=== PATIENT | female | born 1965 | race Caucasian/White ===

== ENCOUNTER → 2016-07-15 | Outpatient (CLI) | payer OTHER ==
--- NOTE | 2016-07-15 17:08 | XR ---
EXAMINATION TYPE: XR chest 2V DATE OF EXAM: 07/15/2016 3:10 PM COMPARISON: Prior chest x-ray 29 January 2016 HISTORY: COPD, irregular heartbeat TECHNIQUE: Frontal and lateral views of the chest are obtained. FINDINGS: There is no focal air space opacity, pleural effusion, or pneumothorax seen. The cardiac silhouette size is within normal limits. Patient is rotated. The osseous structures are intact. IMPRESSION: No acute cardiopulmonary process.
== END | disposition home or self-care (01) ==
LOC: RADXRMAIN 14:50
PROVIDERS: ATTEND Physician Assistant
DX: J44.9 Chronic obstructive pulmonary disease, unspecified (principal)
CPT/HCPCS: 71020

== ENCOUNTER → 2016-07-18 | Outpatient (CLI) | payer OTHER | END | disposition home or self-care (01) | LOC: RADECHMAIN 11:35 | PROVIDERS: ATTEND Family Medicine | DX: I49.1 Atrial premature depolarization (principal) | CPT/HCPCS: 93225; 93226 ==

== ENCOUNTER → 2016-09-05 | Outpatient (CLI) | payer OTHER ==
--- NOTE | 2016-09-05 14:06 | XR ---
EXAMINATION TYPE: XR tibia fibula RT DATE OF EXAM: 09/05/2016 1:58 PM COMPARISON: NONE HISTORY: Pain TECHNIQUE: Two views are submitted. FINDINGS: The osseous structures are intact. The joint spaces are preserved. Soft tissue calcifications are s een anteriorly. IMPRESSION: 1. No acute osseous abnormality.
== END | disposition home or self-care (01) ==
LOC: RADXRMAIN 13:42
PROVIDERS: ATTEND Physician Assistant
DX: M79.604 Pain in right leg (principal)

== ENCOUNTER → 2016-09-09 | Outpatient (CLI) | payer OTHER ==
--- NOTE | 2016-09-09 18:03 | CT ---
EXAMINATION TYPE: CT brain wo con DATE OF EXAM: 09/09/2016 5:50 PM COMPARISON: 11/21/2008 HISTORY: Patient complains of forgetfulness. CT DLP: 1097 mGycm Automated exposure control for dose reduction was used. FINDINGS: The ventricles have normal size. There is no mass effect nor midline shift. There is no sign of intra cranial hemorrhage. The calvarium is intact. IMPRESSION: Negative unenhanced head CT scan. No change.
== END ==
LOC: RADCTMAIN 17:30
PROVIDERS: ATTEND Family Medicine
DX: R41.3 Other amnesia (principal)
CPT/HCPCS: 70450

== ENCOUNTER → 2016-10-17 | Outpatient (CLI) | payer OTHER ==
--- NOTE | 2016-10-17 14:47 | CT ---
EXAMINATION TYPE: CT abdomen pelvis w con DATE OF EXAM: 10/17/2016 2:32 PM COMPARISON: 11/06/2014 HISTORY: 51-year-old female ventral hernia TECHNIQUE: Contiguous axial scanning of the abdomen and pelvis following administration of 100 ml Omn ipaque 300 IV contrast. Delayed images through the kidneys and coronal/sagittal reconstructions perf ormed. CT DLP: 3399.70 mGycm Automated exposure control for dose reduction was used. FINDINGS: The heart is normal size without pericardial effusion. Strandy areas of atelectasis at the lung bases without pleural effusion. Liver is mildly enlarged measuring 18.9 cm craniocaudal with diffuse diminished attenuation. Stable 2 .8 cm hypodense lesion segment 3 left liver lobe compatible with a cyst. Smaller subcentimeter hypode nsity centrally in the liver too small for accurate CT characterization but also likely a cyst. Portal venous system is patent. No biliary ductal dilatation. Gallbladder, adrenal glands, kidneys, spleen with inferior splenule, and pancreas appear within hubert l limits. No dilated small bowel, free fluid, or free air. Scattered nonenlarged mesenteric lymph nodes. Oral contrast has progressed to the distal transverse colon. No significant stool burden. There is sigmoid diverticulosis with wall thickening at the level of the mid to distal sigmoid but no pericolonic inflammatory change. There is some stretching and diastases of the rectus abdominis with focal protuberant bulging. There is widening of 8.1 cm and bulging on the sagittal view measuring up to 9.6 cm craniocaudal, refer to sagittal image 81 and axial image 55. No discrete hernia of the ventral abdominal wall. Bladder is nondistended but contains a small locule of intraluminal air, axial image 82. The uterus a nd left ovary are visualized. The right ovary may be small and is not well seen. No abnormal fluid co llection in the pelvis or pelvic lymphadenopathy. Bones: Mild degenerative changes at the hips. Moderate to severe disc/endplate degenerative change at L5-S1. Hypertrophic facet arthropathy L4-L5 with grade 1 anterolistheses at both L3-L4 and L4-L5. Miranda perior endplate Schmorl's node of L1. No osseous destructive process. IMPRESSION: 1. SIMILAR RECTUS DIASTASES WITH ANTERIOR BULGING OF THE INTERVENING FASCIA. THERE IS DIASTASES OF 8. 1 CM WIDE. NO DISCRETE HERNIA. 2. SIGMOID DIVERTICULOSIS. THERE IS MODERATE WALL THICKENING OF THE MID TO DISTAL SIGMOID THAT COULD REPRESENT CHRONIC DIVERTICULITIS. NO ACUTE INFLAMMATION. 3. CLINICAL CORRELATION RECOMMENDED FOR A SMALL LOCULE OF AIR WITHIN THE BLADDER LUMEN. THIS COULD RE FLECT RECENT INSTRUMENTATION OR INFECTION. 4. HEPATOMEGALY AND HEPATIC STEATOSIS. CORRELATE WITH LFT's, LIPID PROFILE, AND PATIENT RISK FACTORS.
== END | disposition home or self-care (01) ==
LOC: RADCTMAIN 11:45
PROVIDERS: ATTEND Surgery
DX: K57.30 Diverticulosis of large intestine without perforation or abscess without bleeding (principal); R16.0 Hepatomegaly, not elsewhere classified; K76.0 Fatty (change of) liver, not elsewhere classified; K62.89 Other specified diseases of anus and rectum; Q79.59 Other congenital malformations of abdominal wall
CPT/HCPCS: 74177; Q9967

== ENCOUNTER → 2016-12-19 | Outpatient (CLI) | payer OTHER ==
--- NOTE | 2016-12-24 08:51 | MM ---
Reason for exam: screening (asymptomatic). Last mammogram was performed 1 year and 2 months ago. Physical Findings: A clinical breast exam by your physician is recommended on an annual basis and results should be correlated with mammographic findings. MG Screening Mammo w CAD Bilateral CC, MLO, and XCCL view(s) were taken. CV view(s) were taken of the left breast. Prior study comparison: October 26, 2015, bilateral MG screening mammo w CAD. October 04, 2014, bilateral MG screening mammo w CAD. There are scattered fibroglandular densities. No significant changes when compared with prior studies. ASSESSMENT: Negative, BI-RAD 1 RECOMMENDATION: Routine screening mammogram of both breasts in 1 year.
== END | disposition home or self-care (01) ==
LOC: RADMAMWWP 13:46
PROVIDERS: ATTEND Family Medicine
DX: Z12.31 Encounter for screening mammogram for malignant neoplasm of breast (principal)

== ENCOUNTER 2017-03-10 16:36 | Emergency (ER) | payer OTHER ==
[2017-03-10 16:54] VITALS: RESP 18
[2017-03-10] MEDS ORDERED: SODIUM CHLORIDE 0.9% 1,000 ML IV STA (17:16)
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
[2017-03-10 17:41] LABS: Basophils % (A) 0 %; CH 29.9; CHCM 34.1; Eosinophils # (A) 0.2 k/uL (0-0.7); Eosinophils % (A) 2 %; HCT 40.9 % (34.0-46.0); HDW 2.74; HGB 13.8 gm/dL (11.4-16.0); Luc % (Auto) 1; Lymphocytes # (A) 1.6 k/uL (1.0-4.8); Lymphocytes % (A) 17 %; MCH 29.7 pg (25.0-35.0); MCHC 33.7 g/dL (31.0-37.0); MCV 88.1 fL (80.0-100.0); Mean Platelet Volume 7.9; Monocytes # (A) 0.6 k/uL (0-1.0); Monocytes % (A) 6 %; Neutrophils # (A) 7.1 k/uL (1.3-7.7); Neutrophils % (A) 74 %; RBC 4.65 m/uL (3.80-5.40); RDW 14.2 % (11.5-15.5); WBC 9.6 k/uL (3.8-10.6); WBC (Perox) 9.22
--- NOTE | 2017-03-10 17:46 | XR ---
EXAMINATION TYPE: XR KUB DATE OF EXAM: 03/10/2017 COMPARISON: NONE HISTORY: Pain TECHNIQUE: Single supine KUB image of the abdomen is obtained FINDINGS: Small bowel demonstrates no evidence for dilatation or air fluid levels. Gas and fecal material is seen in non-distended colon. No convincing evidence for pneumoperitoneum. No unusual calcifications. The lung bases are clear. The osseous structures are intact. IMPRESSION: 1. Overall nonobstructive bowel gas pattern.
[2017-03-10 17:48] LABS: Appearance,Urine Clear (Clear); Bilirubin,Urine Negative (Negative); Glucose,Urine (UA) Negative (Negative); Ketones,Urine Negative (Negative); Leukocyte Esterase,Urine Negative (Negative); Nitrite,Urine Negative (Negative); Protein,Urine Negative (Negative); Specific Gravity,Urine 1.019 (1.001-1.035); UA Billing (MACRO vs. MICRO) CHEM; Urobilinogen,Urine <2.0 mg/dL (<2.0)
[2017-03-10 17:49] LABS: ALT 43 U/L (9-52); AST 23 U/L (14-36); Alkaline Phosphatase 99 U/L (38-126); Anion Gap 11 mmol/L; Blood Urea Nitrogen 16 mg/dL (7-17); Calcium 9.3 mg/dL (8.4-10.2); Carbon Dioxide 26 mmol/L (22-30); Chloride 104 mmol/L (98-107); Glucose 78 mg/dL (74-99); Non-African American GFR(MDRD) >60 (>60 ml/min/1.73 sqM); Potassium 4.4 mmol/L (3.5-5.1); Sodium 141 mmol/L (137-145); Total Bilirubin 0.4 mg/dL (0.2-1.3); Total Protein 6.9 g/dL (6.3-8.2)
[2017-03-10 17:50] LABS: Amylase 36 U/L (30-110)
[2017-03-10 18:36] VITALS: BP 131/59; PULSE 67
[2017-03-10 18:50] VITALS: TEMP 97.1
== END 2017-03-10 18:50 | disposition home or self-care (01) ==
LOC: EC 16:36
DX: K59.00 Constipation, unspecified (principal); R10.30 Lower abdominal pain, unspecified; R11.2 Nausea with vomiting, unspecified; J45.909 Unspecified asthma, uncomplicated; I10 Essential (primary) hypertension; M19.90 Unspecified osteoarthritis, unspecified site; Z87.891 Personal history of nicotine dependence; Z79.51 Long term (current) use of inhaled steroids; Z79.899 Other long term (current) drug therapy
CPT/HCPCS: 36415; 74000; 80053; 81003; 82150; 83690; 85025; 96360; 99284

== ENCOUNTER → 2017-08-14 | Outpatient (CLI) | payer OTHER ==
--- NOTE | 2017-08-14 14:21 | US ---
EXAMINATION TYPE: US pelvic complete DATE OF EXAM: 08/14/2017 COMPARISON: CT 2017, US 2016 CLINICAL HISTORY: R10.9 abd pain. Abdomen pain and bloating x 4 days, 4, para 4, history of r ight oophorectomy TECHNIQUE: . Transabdominal sonographic images of the pelvis were acquired. Transvaginal sonographi c images were medically necessary to better assess the following anatomy: uterus and left ovary Date of LMP: 2 years ago EXAM MEASUREMENTS: Uterus: 7.7 x 4.0 x 4.5 cm Endometrial Stripe: 0.5 cm Right Ovary: surgically absent cm Left Ovary: not seen 1. Uterus: anteverted, heterogeneous with 1.5 x 1.4 x 1.6cm hypoechoic lesion posterior myometrium 2. Endometrium: visualized portion wnl 3. Right Ovary: surgically absent 4. Left Ovary: not seen due to overlying bowel 5. Bilateral Adnexa: wnl 6. Posterior cul-de-sac: wnl IMPRESSION: 1. Within the posterior mid myometrium there is a hypoechoic 1.6 cm probable leiomyoma. 2. Endometrial thickness is within normal limits. 3. Nonvisualization of the left ovary and surgical absence of the right ovary.
== END | disposition home or self-care (01) ==
LOC: RADUSWWP 13:41
PROVIDERS: ATTEND Family Medicine
DX: R93.8 Abnormal findings on diagnostic imaging of other specified body structures (principal); R10.9 Unspecified abdominal pain; Z90.721 Acquired absence of ovaries, unilateral
CPT/HCPCS: 76830; 76856

== ENCOUNTER 2018-01-19 15:23 | Emergency (ER) | payer MEDICARE, OTHER ==
[2018-01-19 15:41] VITALS: BP 140/87; PULSE 89; RESP 16; TEMP 98.4
[2018-01-19] MEDS ORDERED: PROPARACAINE 0.5% OPHTH DROPS 15 ML BTL RIGHT EYE STA (16:05)
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
== END 2018-01-19 16:44 | disposition home or self-care (01) ==
LOC: EC 15:23
DX: S05.01XA Injury of conjunctiva and corneal abrasion without foreign body, right eye, initial encounter (principal); J45.909 Unspecified asthma, uncomplicated; I10 Essential (primary) hypertension; M19.90 Unspecified osteoarthritis, unspecified site; G47.30 Sleep apnea, unspecified; Z99.89 Dependence on other enabling machines and devices; Z86.14 Personal history of Methicillin resistant Staphylococcus aureus infection; Z87.891 Personal history of nicotine dependence; Z79.51 Long term (current) use of inhaled steroids; Z79.899 Other long term (current) drug therapy; X58.XXXA Exposure to other specified factors, initial encounter; Y92.009 Unspecified place in unspecified non-institutional (private) residence as the place of occurrence of the external cause
CPT/HCPCS: 99283

== ENCOUNTER 2018-10-25 19:16 | Emergency (ER) | payer MEDICARE, OTHER ==
[2018-10-25 19:43] VITALS: BP 121/83; PULSE 80; RESP 18; TEMP 98.3
[2018-10-25 19:45] LABS: Glucose,Whole Blood 112 mg/dL (75-99)
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
== END 2018-10-25 21:31 | disposition home or self-care (01) ==
LOC: EC 19:16
DX: Z76.0 Encounter for issue of repeat prescription (principal); E11.9 Type 2 diabetes mellitus without complications; J44.9 Chronic obstructive pulmonary disease, unspecified; I10 Essential (primary) hypertension; G47.30 Sleep apnea, unspecified; Z99.89 Dependence on other enabling machines and devices; Z86.14 Personal history of Methicillin resistant Staphylococcus aureus infection; Z87.891 Personal history of nicotine dependence; Z79.51 Long term (current) use of inhaled steroids; Z79.899 Other long term (current) drug therapy
CPT/HCPCS: 36415; 99282

== ENCOUNTER 2018-11-13 17:18 | Emergency (ER) | payer MEDICARE, OTHER ==
[2018-11-13 17:24] VITALS: TEMP 98.6
[2018-11-13] MEDS ORDERED: SODIUM CHLORIDE 0.9% 1,000 ML IV STA (17:37)
[2018-11-13] MEDS ORDERED: cefTRIAXone 250 MG VIAL IM STA (17:38)
[2018-11-13] MEDS ORDERED: AZITHROMYCIN 500 MG TAB PO STA (17:38)
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
[2018-11-13] MEDS ORDERED: LIDOCAINE 1% INJ 10MG/ML (20 ML MDV) SQ STA (17:47)
[2018-11-13 18:14] LABS: Basophils % (A) 0 %; Eosinophils # (A) 0.1 k/uL (0-0.7); Eosinophils % (A) 2 %; HCT 38.8 % (34.0-46.0); HGB 12.8 gm/dL (11.4-16.0); Lymphocytes # (A) 1.4 k/uL (1.0-4.8); Lymphocytes % (A) 20 %; MCH 28.2 pg (25.0-35.0); MCHC 32.9 g/dL (31.0-37.0); MCV 85.6 fL (80.0-100.0); Mean Platelet Volume 7.2; Monocytes # (A) 0.4 k/uL (0-1.0); Monocytes % (A) 5 %; Neutrophils # (A) 5.1 k/uL (1.3-7.7); Neutrophils % (A) 71 %; Platelet Count 221 k/uL (150-450); RBC 4.53 m/uL (3.80-5.40); RDW 14.1 % (11.5-15.5); WBC 7.2 k/uL (3.8-10.6)
[2018-11-13 18:37] LABS: ALT 21 U/L (9-52); AST 20 U/L (14-36); Alkaline Phosphatase 98 U/L (38-126); Anion Gap 8 mmol/L; Blood Urea Nitrogen 19 mg/dL (7-17); Calcium 9.6 mg/dL (8.4-10.2); Carbon Dioxide 27 mmol/L (22-30); Chloride 105 mmol/L (98-107); Glucose 184 mg/dL (74-99); Lipase 51 U/L (23-300); Potassium 4.4 mmol/L (3.5-5.1); Sodium 140 mmol/L (137-145); Total Bilirubin 0.3 mg/dL (0.2-1.3); Total Protein 6.7 g/dL (6.3-8.2)
[2018-11-13 18:50] LABS: Appearance,Urine Clear (Clear); Bilirubin,Urine Negative (Negative); Blood,Urine Negative (Negative); Color,Urine Yellow; Glucose,Urine (UA) 3+ (Negative); Ketones,Urine Negative (Negative); Leukocyte Esterase,Urine Negative (Negative); Nitrite,Urine Negative (Negative); PH, Urine 5.5 (5.0-8.0); Protein,Urine Negative (Negative); Specific Gravity,Urine 1.029 (1.001-1.035); Urobilinogen,Urine <2.0 mg/dL (<2.0)
--- NOTE | 2018-11-13 19:41 | CT ---
EXAMINATION TYPE: CT abdomen pelvis w con DATE OF EXAM: 11/13/2018 COMPARISON: Prior CT abdomen pelvis 10/17/2016 HISTORY: Abdominal pain. Isovue 300/100 ml. Pt claustrophobic, unable to complete [address] DLP: 1454 mGycm Automated exposure control for dose reduction was used. TECHNIQUE: Helical acquisition of images from the lung bases through the pelvis have been completed. CONTRAST: Performed without Oral Contrast and with IV Contrast, patient injected with 100 mL of Isovue 300. FINDINGS: There is some motion on the exam. LUNG BASES: Minimal atelectatic changes are present. AORTA: No significant abnormality is appreciated. LIVER/GB: The liver is enlarged and shows low attenuation. Cystic focus within the left lobe is again seen. Gallbladder is contracted. PANCREAS: No significant abnormality is seen. SPLEEN: No significant abnormality is seen. ADRENALS: No significant abnormality is seen. KIDNEYS: No significant abnormality is seen. REPRODUCTIVE ORGANS: No significant abnormality is seen BOWEL: Diverticular changes associated with the sigmoid colon. No evident bowel obstruction. Colonic interposition anterior to the liver. The appendix is not seen. Small bowel loops show some wall thic kening and fluid-filled appearance. FREE AIR: No Free Air visible. ASCITES: None visible. PELVIC ADENOPATHY: None visualized. RETROPERITONEAL ADENOPATHY: No Retroperitoneal Adenopathy visible. URINARY BLADDER: No significant abnormality is seen. OSSEOUS STRUCTURES: Degenerative disc changes are present in the lower lumbar spine, there is associ ated facet arthropathy. IMPRESSION: PROBABLE HEPATIC STEATOSIS. DIVERTICULOSIS. CONSIDER ENTERITIS. EXAM SOMEWHAT LIMITED. ADDITIONAL FIN DINGS ABOVE.
[2018-11-13 20:24] VITALS: BP 145/89; PULSE 78; RESP 16
[2018-11-15 14:21] LABS: N. gonorrhoeae,PCR Negative (Neg,Equiv); Neisseria Source Urine
[2018-11-15 14:30] LABS: C. trachomatis,PCR Negative (Neg,Equiv); Chlamydia trachomatis Source Urine
== END 2018-11-13 20:15 | disposition home or self-care (01) ==
LOC: EC 17:18
DX: R10.32 Left lower quadrant pain (principal); R19.7 Diarrhea, unspecified; Z71.1 Person with feared health complaint in whom no diagnosis is made; K76.0 Fatty (change of) liver, not elsewhere classified; K57.90 Diverticulosis of intestine, part unspecified, without perforation or abscess without bleeding; J44.9 Chronic obstructive pulmonary disease, unspecified; E11.9 Type 2 diabetes mellitus without complications; G47.30 Sleep apnea, unspecified; I10 Essential (primary) hypertension; Z79.4 Long term (current) use of insulin; Z79.899 Other long term (current) drug therapy; Z87.891 Personal history of nicotine dependence; Z90.89 Acquired absence of other organs
CPT/HCPCS: 99284; 96360; 96361; 96372 ×2; 36415; 80053; 83605; 83690; 85025; 81003; 87491; 87591; 74177; J2001; J0696; Q9967

== ENCOUNTER 2019-08-11 11:05 | Emergency (ER) | payer MEDICARE, OTHER ==
[2019-08-11 11:14] VITALS: BP 137/95; PULSE 68; RESP 18; TEMP 97.9
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
== END 2019-08-11 12:23 | disposition home or self-care (01) ==
LOC: EC 11:05
DX: L98.8 Other specified disorders of the skin and subcutaneous tissue (principal); L53.8 Other specified erythematous conditions; J45.909 Unspecified asthma, uncomplicated; E11.9 Type 2 diabetes mellitus without complications; I10 Essential (primary) hypertension; G47.30 Sleep apnea, unspecified; Z79.51 Long term (current) use of inhaled steroids; Z79.4 Long term (current) use of insulin; Z79.899 Other long term (current) drug therapy; Z87.891 Personal history of nicotine dependence; Z99.89 Dependence on other enabling machines and devices; Z86.14 Personal history of Methicillin resistant Staphylococcus aureus infection
CPT/HCPCS: 99283

== ENCOUNTER 2023-02-28 12:49 | Emergency (ER) | payer MEDICARE, OTHER ==
[2023-02-28 12:58] VITALS: BP 137/77; PULSE 73; RESP 20; TEMP 98.3
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
== END 2023-02-28 13:47 | disposition left against medical advice (07) ==
LOC: EC 12:49
DX: R10.9 Unspecified abdominal pain (principal); E11.9 Type 2 diabetes mellitus without complications; I10 Essential (primary) hypertension; J45.909 Unspecified asthma, uncomplicated; F12.90 Cannabis use, unspecified, uncomplicated; G47.30 Sleep apnea, unspecified; M19.90 Unspecified osteoarthritis, unspecified site; Z79.51 Long term (current) use of inhaled steroids; Z79.4 Long term (current) use of insulin; Z79.899 Other long term (current) drug therapy
CPT/HCPCS: 99283